=== PATIENT | male | born 1985 | race African-American/Black ===

== ENCOUNTER 2024-08-21 15:47 | Emergency (ER) | payer OTHER ==
[~2024-08-21] VITALS: Ht 190.5 cm; Wt 86.2 kg
[2024-08-21] MEDS ORDERED: LIDOCAINE HCL-MPF 2% 5ML VIAL IM STA (16:22)
[2024-08-21] MEDS: BUPIvacaine/EPI/PF 0.5% 30ML VIAL IJ STA (18:18)
--- NOTE | 2024-08-21 18:40 | ERN ---
General Chief Complaint: Tooth Ache/Pain Stated Complaint: TOOTH ACHE Time Seen by MD: 15:51 Source: patient History of Present Illness Initial Comments Patient is a 39-year-old male coming in to be evaluated for left-sided toothache. Per patient the to take has been ongoing for several days. He states that does not have any medication he was not from here and states that the pain is excruciating. Allergies: Coded Allergies: No Known Drug Allergies (Unverified Allergy, Unknown, 08/21/24) Past Medical History Past Medical History: No Pertinent History Past Surgical History: Other Surgical History Other: HERNIA REPAIR ROS Dictation CONSTITUTIONAL: No chills, no fever, no weakness, no diaphoresis, no malaise. HEAD/FACE: No signs of trauma. EENT: No eye pain, no blurred vision, no tearing, no double vision, no ear pain, no ear discharge, no nose pain, no nasal congestion, no throat pain, no throat swelling, mouth pain. RESPIRATORY: No cough, no orthopnea, no SOB, no stridor, no wheezing. CARDIOVASCULAR: No chest pain, no edema, no palpitations, no syncope. GASTROINTESTINAL/ABDOMINAL: No abdominal pain, no constipation, no diarrhea, no nausea, no vomiting. GENITOURINARY: No abnormal discharge, no dysuria, no frequent urination, no hematuria. No complaints of pain in the genitals. MUSCULOSKELETAL: No back pain, no gout, no joint pain, no joint swelling, no muscle pain, no muscle stiffness, no neck pain. INTEGUMENTARY: No change in color, no change in hair/nails, no dryness, no lesion, no lumps, no rash. NEUROLOGICAL/PSYCH: No anxiety, not depressed, no emotional problem, no headache, no numbness, no pre-existing deficit, no history of seizures, no tremors, no weakness. HEMATOLOGIC/LYMPHATIC: Not anemic, no history of blood clots, no apparent bleeding, no bruising, glands not swollen. All Systems Negative, Except as Noted. Physical Exam Physical Exam Dictation VITAL SIGNS: Reviewed. GENERAL APPEARANCE: Alert, oriented x3, no acute distress, obese. HEAD AND FACE: Non-traumatic. EYES: PERRL, pink conjunctivas, eyelid no trauma, anterior chamber clear. EARS: Pinnas intact and no signs of trauma or erythema. Ear canals clear and no discharge. TMs no erythema. NOSE: No discharge, no bleeding. OROPHARYNX: Mouth normal, teeth no caries, tongue pink. Pharynx clear, no erythema. Tonsils no exudates, no abscesses noted. Mucous membrane moist. NECK: Supple, non-tender, no thyromegaly, no masses, no JVD, no bruits. BREAST: Deferred. CHEST: No tenderness, no crepitus, no paradoxical movement, no retractions. LUNGS: Clear, well-ventilated, symmetric, no rales, no wheezing, no rhonchi, no stridor, good breath sounds bilaterally. HEART: Regular rate, regular rhythm, no murmur, no gallops. VASCULAR: No peripheral edema. ABDOMEN: Soft, positive bowel sounds, nondistended, no guarding, nontender, no rebound, no masses no hepatomegaly, no splenomegaly, no Rutledge's sign, no hernias. RECTAL: Deferred. GENITAL: Deferred. NEUROLOGICAL: Normal speech, gross motor function intact, gross sensory function intact. MUSCULOSKELETAL: Neck nontender, full range of motion, back nontender, full range of motion. EXTREMITIES: Nontender, full range of motion. SKIN: Color pink, dry, no turgor, no rash, no lacerations, no abrasions, no contusions. LYMPHATICS: Deferred. Results Laboratory and Microbiology Labs Reviewed?: Yes MDM MDM: Differential diagnosis: Periodontal disease, fractured molar, Rationale: Tests considered and ordered secondary to shared decision making include: Previous outside records reviewed: Old ER visits. Risk of complication and/or morbidity or mortality of patient management: None Medications-Per medication reconciliation Patient is a 39-year-old male coming in to be evaluated for left tooth 16. Fractured molar and facial discomfort. Performed the block patient's pain improved. Patient will be discharged in stable condition with a diagnosis of fractured molar per periodontal disease. ED Course Orders Procedure Category Date Status Time Lidocaine Hcl-Mpf 2% PHA 08/21/24 Complete 5ml Vial (Lidocaine 16:22 Bupivacaine/Epi/Pf PHA 08/21/24 Complete 0.5% 30ml (Bupivacain 16:24 Tramadol Hcl (Ultram) PHA 08/21/24 In Process 19:00 Current Medications Medications (Trade) Dose Ordered Sig/Melchor Route PRN Reason Start Time Stop Time Status Last Admin Dose Admin Bupivacaine HCl/ Epinephrine Bitart (BUPIvacaine/EPI/ PF 0.5% 30ML) 30 ml ONCE STAT IJ 08/21/24 16:24 08/21/24 16:28 DC 08/21/24 18:18 Lidocaine HCl (Lidocaine HCl-Mpf 2% 5ml Vial) 20 ml ONCE STAT IM 08/21/24 16:22 08/21/24 16:25 DC Tramadol HCl (UltRAM) 50 mg ONCE ONCE PO 08/21/24 19:00 08/21/24 19:01 Vital Signs Date Time Temp Pulse Resp B/P (MAP) Pulse Ox O2 Delivery O2 Flow Rate FiO2 08/21/24 17:10 97.7 67 18 156/94 97 Room Air* 0 21 08/21/24 15:49 97.7 67 18 156/94 97 Room Air Procedure Dictation Being a sterile environment used cleansing with for treatment peroxide wiping keeping dry the Bupivacaine 1 mL was introduced to the inferior alveolar nerve patient tolerated procedure well. DX & DISP Disposition: Discharge Departure Impression: Primary Impression: Fractured tooth Additional Impression: Periodontal disease Condition: Stable Scripts Naproxen (Naproxen) 500 Mg Tablet 1 TAB PO BID for pain for 7 Days, #14 TAB 0 Refills Prov: VIDAL GRANADO MD 08/21/24 Amoxicillin/Potassium Clav (Amox Tr-K Clv 875-125 mg Tab) 875 Mg-125 Mg Tablet 1 TAB PO BID for 10 Days, #20 TAB 0 Refills Prov: VIDAL GRANADO MD 08/21/24 Additional Instructions: FOLLOW-UP WITH PRIMARY CARE PROVIDER IN 1 TO 2 DAYS. TAKE MEDICATIONS DIRECTED HERE IN THE EMERGENCY ROOM. OKAY TO CONTINUE HOME MEDICATIONS UNLESS OTHERWISE DISCUSSED DURING YOUR VISIT IN THE EMERGENCY ROOM TODAY. RETURN TO YOUR NEAREST EMERGENCY ROOM IF SYMPTOMS WORSEN OR IF THERE IS NO IMPROVEMENT. CALL 911 IF YOU NEED IMMEDIATE ASSISTANCE. TAKE TYLENOL [id number] NEEDED AND IF NO CONTRAINDICATIONS ARE PRESENT. INCREASE ORAL HYDRATION. A WOUND CULTURE OR URINE CULTURE WAS ORDERED HERE IN THE EMERGENCY ROOM DEPARTMENT PLEASE FOLLOW-UP WITH PRIMARY CARE PROVIDER AND ADVISE THEM TO GET REPEAT PORTS FROM OUR FACILITY. IF YOU HAD ANY MONICA WRAP/SPLINTS THAT WERE APPLIED HERE, PLEASE DO NOT REMOVE THEM UNTIL YOU SEE YOUR PRIMARY CARE OR SPECIALTY. Referrals: Referrals: SELF,REFERRAL (PCP) MAURA IBARRA MD Time of Disposition: 18:47 VIDAL GRANADO MD Aug 21, 2024 18:40
[2024-08-21] MEDS: traMADol HCL 50 MG TABLET PO ONE (18:47)
[2024-08-21] MEDS ORDERED: AMOX1TAB16 PO (18:48)
[2024-08-21] MEDS ORDERED: NAPR-1194 PO (18:48)
[2024-08-21 18:53] VITALS: BP 138/73; PULSE 62; RESP 18; TEMP 97.7; O2SAT 97
== END 2024-08-21 18:54 | disposition home or self-care (01) ==
LOC: EDH 15:47
DX: S02.5XXA Fracture of tooth (traumatic), initial encounter for closed fracture (principal); K05.6 Periodontal disease, unspecified; Z98.890 Other specified postprocedural states; X58.XXXA Exposure to other specified factors, initial encounter; Y93.89 Activity, other specified; Y92.89 Other specified places as the place of occurrence of the external cause; Y99.8 Other external cause status
CPT/HCPCS: 99284; 64400; J3490